=== PATIENT | male | born 1945 | race Caucasian/White ===

== ENCOUNTER → 2024-11-19 10:08 | Outpatient (BNVA) | payer MEDICARE, OTHER, SELFPAY | PROVIDERS: Family Provider Family Medicine; PCP Family Medicine; Visit Provider Podiatrist Foot & Ankle Surgery | DX: R09.89 Other specified symptoms and signs involving the circulatory and respiratory systems (principal); I73.9 Peripheral vascular disease, unspecified | CPT/HCPCS: 99203 ==

== ENCOUNTER 2025-01-01 09:44 | Outpatient (CLI) | payer MEDICARE, SELFPAY ==
--- NOTE | 2025-01-01 11:05 | USR_ITS ---
PROCEDURE INFORMATION: Exam: US Non-Invasive Physiologic Bilateral Lower Extremities Arteries, Complete Exam date and time: 01/01/2025 12:04 PM Age: 79 years old Clinical indication: Pain; Leg, lower; Bilateral; Additional info: Decrease pedal pulses, inocencia le TECHNIQUE: Imaging protocol: Complete bilateral noninvasive physiologic studies of lower extremity arteries, 3 or more levels or single level study with provocative functional maneuvers. Waveforms were obtained and evaluated. Images were documented and archived. Exam is complete. COMPARISON: No relevant prior studies available. FINDINGS: Right Ankle-Brachial Index: 0.72. Left Ankle-Brachial Index: 0.91. US/CV segpressure LE [facility] [id number] IMPRESSION: Evidence of peripheral artery disease, right greater than left.
== END 2025-01-01 09:45 | disposition home or self-care (01) ==
PROVIDERS: Family Provider Family Medicine; PCP Family Medicine; Visit Provider Podiatrist Foot & Ankle Surgery
DX: R09.89 Other specified symptoms and signs involving the circulatory and respiratory systems (principal); R93.89 Abnormal findings on diagnostic imaging of other specified body structures
CPT/HCPCS: 93923

== ENCOUNTER → 2025-01-03 15:08 | Outpatient (BNVA) | payer MEDICARE, OTHER, SELFPAY | PROVIDERS: Family Provider Family Medicine; PCP Family Medicine; Visit Provider Podiatrist Foot & Ankle Surgery | DX: I73.9 Peripheral vascular disease, unspecified (principal); L97.518 Non-pressure chronic ulcer of other part of right foot with other specified severity | CPT/HCPCS: 99213 ==

== ENCOUNTER → 2025-03-07 14:44 | Outpatient (BNVA) | payer MEDICARE, OTHER, SELFPAY | PROVIDERS: Family Provider Family Medicine; PCP Family Medicine; Visit Provider Podiatrist Foot & Ankle Surgery | DX: I73.9 Peripheral vascular disease, unspecified (principal); L97.513 Non-pressure chronic ulcer of other part of right foot with necrosis of muscle | CPT/HCPCS: 87070; 87075; 87077; 87186; 87205; 99214 ==

== ENCOUNTER → 2025-03-28 12:24 | Outpatient (BNVA) | payer MEDICARE, OTHER, SELFPAY | PROVIDERS: Family Provider Family Medicine; PCP Family Medicine; Visit Provider Internal Medicine Cardiovascular Disease | DX: R07.9 Chest pain, unspecified (principal); I73.9 Peripheral vascular disease, unspecified; R00.1 Bradycardia, unspecified; I51.7 Cardiomegaly; L97.513 Non-pressure chronic ulcer of other part of right foot with necrosis of muscle; R94.31 Abnormal electrocardiogram [ECG] [EKG] | CPT/HCPCS: 36415; 80048; 85025; 85610; 93005; 99213 ==

== ENCOUNTER 2025-04-11 08:26 | Outpatient (CLI) | payer MEDICARE, OTHER, SELFPAY ==
[2025-04-11] VITALS (50 sets, daily range): BP systolic 96–191; BP diastolic 54–105; PULSE 60–86; RESP 12–28; TEMP 36.4; O2SAT 89–100; BMI 16.2
--- NOTE | 2025-04-11 09:00 | XACV_ITS ---
Exam Room: 2 Ht: 183 cm Wt: 54 kg BSA: 1.64 m2 Gender: Male : 1945 Any Known Allergies: Sulfa Exam Priority: Routine Procedure(s): Procedure Description: Diagnostic procedure Procedure Description: Peripheral Cath Diagnostic Procedure Procedure Description: Abdominal aortic angiography Procedure Description: Iliac arterial aortic angiography Procedure Description: Lower extremities' angiography Procedure Description: Peripheral vascular Intervention Procedure Description: PV Balloon Procedure Description: PV Stent Procedure Description: Miscellaneous Procedure Description: ACT Kirsty LO; Diagnostic Cath Status: Elective Diagnostic Findings * ndication for peripheral angiogram: Critical limb ischemia with pain at rest of right more than left lower extremity Catheters used:: 6 Martiniquais short sheath, 6 Martiniquais long destination sheath, UF catheter, GlidewireAbdominal aortogram: After UF catheter was advanced into mid abdominal segment at the level of renal arteries, angiogram was obtained, it was consistent with moderate infrarenal aneurysmRight renal artery: Not well-visualized Left renal artery: Not well-visualizedYou have catheter was then advanced and placed at the bifurcation of the both common iliac from where right lower extremity runoff was obtainedRight common iliac: Proximal calcified mild to moderate lesion Right external iliac: Proximal calcified mild to moderate lesion Right internal iliac: High-grade ostial stenosis followed by ectasia Right common femoral artery: Diffuse luminal irregularity with calcification Right profundofemoral artery: Small caliber diffuse luminal irregularity with calcification Long sheath was exchanged over Glidewire and placed in the right common femoral to obtain angiogramRight SFA: Extremely calcified and highly tortuous vessel which is 100% chronically occluded in the proximal segmentRight popliteal artery: Very calcified vessel with moderate lesion in the midsegment reconstitute in its proximal segment from profunda femoral and collaterals coming from common femoral arteryRight Tibioperoneal trunk calcified small caliber artery which is patent Right anterior tibial artery: Calcified torturous vessel which is patent has blood coming in trickling down from collaterals Right posterior tibial artery: Chronically occluded Right peroneal artery: Chronically occludedLeft common iliac artery: Ectatic calcified aneurysmal torturous artery without significant stenosis Left external iliac artery: Calcified vessel which is patent Left internal iliac artery: Appeared to be chronically occluded not visualized Left common femoral artery: Calcified vessel with moderate proximal stenosis Left profundofemoral artery: Calcified vessel which is patent but small caliber Left SFA artery: Appeared to be highly calcified torturous and chronically occluded vessel Left popliteal artery: Chronically occluded Left tibioperoneal artery: Chronically occluded Left anterior tibial artery: Not visualized Left posterior tibial artery: Not visualized Left peroneal artery: Not visualized. Lower Extremity Interventional Findings Percutaneous angioplasty using lithotripsy of right SFA and popliteal arteryAfter somewhat difficulty using seeker catheter Glidewire and run-through we were able to cross the SFA popliteal artery and parked the run-through in the right anterior tibial artery.We first dilated popliteal artery and right SFA throughout its length using [place] 5.0 x 250 x 1 and 35 balloon with multiple inflation each lasting for 2 minutesAfter taking the balloon out of the patient, we then introduced IV L catheter 6.0 x 80 mm shockwave multiple shockwave were delivered first in the right popliteal artery which was then withdrawn back into the right SFA. Multiple shockwaves were delivered in proximal to distal right SFA. Supera stent deployment in the distal to mid right SFA since that segment despite of balloon angioplasty and shockwave showed moderate to severe lesion. Using 6.0 x 0.15 mm supera stent we then stented distal SFA segment.Excellent angiographic result was obtained which showed widely patent right SFA popliteal right tibioperoneal trunk and single-vessel runoff of torturous calcified right anterior tibial. Right anterior tibial was supplying collaterals and contributed to the arch. Conclusions ndication for peripheral angiogram: Critical limb ischemia with pain at rest of right more than left lower extremity Catheters used:: 6 Martiniquais short sheath, 6 Martiniquais long destination sheath, UF catheter, GlidewireAbdominal aortogram: After UF catheter was advanced into mid abdominal segment at the level of renal arteries, angiogram was obtained, it was consistent with moderate infrarenal aneurysmRight renal artery: Not well-visualized Left renal artery: Not well-visualizedYou have catheter was then advanced and placed at the bifurcation of the both common iliac from where right lower extremity runoff was obtainedRight common iliac: Proximal calcified mild to moderate lesion Right external iliac: Proximal calcified mild to moderate lesion Right internal iliac: High-grade ostial stenosis followed by ectasia Right common femoral artery: Diffuse luminal irregularity with calcification Right profundofemoral artery: Small caliber diffuse luminal irregularity with calcification Long sheath was exchanged over Glidewire and placed in the right common femoral to obtain angiogramRight SFA: Extremely calcified and highly tortuous vessel which is 100% chronically occluded in the proximal segmentRight popliteal artery: Very calcified vessel with moderate lesion in the midsegment reconstitute in its proximal segment from profunda femoral and collaterals coming from common femoral arteryRight Tibioperoneal trunk calcified small caliber artery which is patent Right anterior tibial artery: Calcified torturous vessel which is patent has blood coming in trickling down from collaterals Right posterior tibial artery: Chronically occluded Right peroneal artery: Chronically occludedLeft common iliac artery: Ectatic calcified aneurysmal torturous artery without significant stenosis Left external iliac artery: Calcified vessel which is patent Left internal iliac artery: Appeared to be chronically occluded not visualized Left common femoral artery: Calcified vessel with moderate proximal stenosis Left profundofemoral artery: Calcified vessel which is patent but small caliber Left SFA artery: Appeared to be highly calcified torturous and chronically occluded vessel Left popliteal artery: Chronically occluded Left tibioperoneal artery: Chronically occluded Left anterior tibial artery: Not visualized Left posterior tibial artery: Not visualized Left peroneal artery: Not visualized. Percutaneous angioplasty using lithotripsy of right SFA and popliteal arteryAfter somewhat difficulty using seeker catheter Glidewire and run-through we were able to cross the SFA popliteal artery and parked the run-through in the right anterior tibial artery.We first dilated popliteal artery and right SFA throughout its length using [place] 5.0 x 250 x 1 and 35 balloon with multiple inflation each lasting for 2 minutesAfter taking the balloon out of the patient, we then introduced IV L catheter 6.0 x 80 mm shockwave multiple shockwave were delivered first in the right popliteal artery which was then withdrawn back into the right SFA. Multiple shockwaves were delivered in proximal to distal right SFA. Supera stent deployment in the distal to mid right SFA since that segment despite of balloon angioplasty and shockwave showed moderate to severe lesion. Using 6.0 x 0.15 mm supera stent we then stented distal SFA segment.Excellent angiographic result was obtained which showed widely patent right SFA popliteal right tibioperoneal trunk and single-vessel runoff of torturous calcified right anterior tibial. Right anterior tibial was supplying collaterals and contributed to the arch. Recommendations 1-Return to inpatient for close monitoring and routine cath care 2-Risk factor modification for secondary prevention 3-Statin and aspirin 81 mg life-long, if tolerated 4-Patient was pre-loaded with 300 mg of Plavix, continue Plavix 75mg p.o. daily. 5-CTA of the abdominal aorta to assess renal arteries and exact size of the abdominal aortic aneurysm followed by referral to vascular surgery 6-Follow up with Dr. Lofton in four weeks and your primary care in 10 days. Pressures Phase:Rest AO : 190 / 62 ( 108 ) @ 11:04:00 AM 154 / 63 ( 102 ) @ 11:08:00 AM 122 / 66 ( 93 ) @ 11:51:00 AM 132 / 57 ( 88 ) @ 11:59:00 AM Hemodynamic Data Phase:Rest AO : 190.0 / 62.0 ( 108.0 ) @ 11:04:00 AM 154.0 / 63.0 ( 102.0 ) @ 11:08:00 AM 122.0 / 66.0 ( 93.0 ) @ 11:51:00 AM 132.0 / 57.0 ( 88.0 ) @ 11:59:00 AM Clinical Evaluation EBL: 5mL-10mL Procedural Details Pre-Procedure Time Out. Identified patient by full name and date of as verbalized by the patient/guarantor. Does the consent match the physician's order: Yes. Accurate & Complete Informed Consent: Yes. Inpatient/Outpatient History & Physical on Chart: Yes. If H&P is completed, is and addenduem needed: No; If yes, is the addendum complete: N/A. Visualize and Verify Site with Patient/Guarantor: N/A. Relevant Radiology Images available: Yes. Pre-op teaching completed and patient verbalized understanding. The risks, benefits, and alternatives of sedation and/or procedure were discussed by physician. The patient agrees to continue. Procedure started. Physician arrived. Physician scrubbed in. Immediate Pre-Procedure Time Out. Correct Patient: Yes; Correct Procedure: Yes; Correct Site: Yes; Correct Patient Position: Yes; Correct Supplies: Yes; Dried Flammable Prep: Yes; Blood Products Available: N/A;. Lidocaine 1% infiltrated to the left groin. Arterial access obtained with micropuncture set. A 5FrFr UF catheter in over wire. Abdominal aortogram with runoff performed in AP @ 10 mL/sec for a total of 30 mL. UF catheter postioned above the bifurcation of the iliacs. Aortagram performed @ 10 mL/sec for a total of 30 mL. Left external iliac selected and arteriogram with runoff performed @ 10 mL/sec for a total of 30 mL. Physician review of cine films. DSA performed of both iliacs. Glidewire inserted through the catheter. Catheter removed over the glide wire. A 5FrFr RIM catheter in over wire. Catheter out over the glidewire. The short 6Fr sheath exchanged for a 45cm 6Fr Flexor sheath. Right external iliac selected and arteriogram performed. Seeker inserted OTW. Wire out. Glidewire Advantage inserted. Wire out. Catheter hooked to heparnized saline at KVO. Glidewire Advantage inserted. Wire out. Contrast hand injected through the catheter. Glidewire Advantage inserted. Seeker catheter out OTW. ACT drawn. Results 287 seconds. Therapeutic limits - pre-heparin administration 90-150 seconds and monitoring heparin during a vascular procedure >250 seconds. Inflation number : 1 A AB [place] 35 PROFESSOR OF HISTORY Catheter [id number] was prepped and advanced across the Superficial Femoral, Right , then inflated to 8 LIZA for 2:00 seconds. Inflation number: 2 The AB [place] 35 [employer]ESSOR OF HISTORY Catheter [id number] was reinflated across the Superficial Femoral, Right, to 8 LIZA for 2:04 seconds. Balloon out. Results checked. Seeker inserted OTW. Wire removed. 300cm Runthrough wire inserted. Physician review of cine films. ACT drawn. Results 221 seconds. Therapeutic limits - pre-heparin administration 90-150 seconds and monitoring heparin during a vascular procedure >250 seconds. 6.0x80mm Shockwave IVL balloon inserted OTW and advanced to the SFA. Inflation number : 3 A 6.0x80mm Shockwave was prepped and advanced across the Superficial Femoral, Right , then inflated to 4 LIZA for 0:43 seconds. Inflation number: 4 The 6.0x80mm Shockwave was reinflated across the Superficial Femoral, Right, to 4 LIZA for 0:37 seconds. Inflation number: 5 The 6.0x80mm Shockwave was reinflated across the Superficial Femoral, Right, to 4 LIZA for 0:36 seconds. Inflation number: 6 The 6.0x80mm Shockwave was reinflated across the Superficial Femoral, Right, to 4 LIZA for 0:41 seconds. Inflation number: 7 The 6.0x80mm Shockwave was reinflated across the Superficial Femoral, Right, to 4 LIZA for 0:32 seconds. Inflation number: 8 The 6.0x80mm Shockwave was reinflated across the Superficial Femoral, Right, to 4 LIZA for 0:34 seconds. Inflation number: 9 The 6.0x80mm Shockwave was reinflated across the Superficial Femoral, Right, to 4 LIZA for 0:32 seconds. Inflation number: 10 The 6.0x80mm Shockwave was reinflated across the Superficial Femoral, Right, to 4 LIZA for 0:35 seconds. Inflation number: 11 The 6.0x80mm Shockwave was reinflated across the Superficial Femoral, Right, to 4 LIZA for 0:35 seconds. Inflation number: 12 The 6.0x80mm Shockwave was reinflated across the Superficial Femoral, Right, to 4 LIZA for 0:33 seconds. Balloon out. Results checked. Stent inserted over the wire to the right superficial femoral. Inflation Number : 13 A Supera 6.0 X 150mm Stent -Lot Number# _[id number] EXP: 02/18/2027 was prepped and advanced across the Superficial Femoral, Right. The stent was deployed. Stent balloon out over wire. Results checked. Wire out. The standard wire inserted through the sheath. Sheath exchanged for a short 6FR sheath. Sheath injected in Left common femoral artery and runoff performed. ACT drawn. Results 301 seconds. Therapeutic limits - pre-heparin administration 90-150 seconds and monitoring heparin during a vascular procedure >250 seconds. Physician scrubbed out. A Suture was successful obtaining hemostatsis at the Left Femoral artery insertion site. Sheath(s) sutured into position with 2-0 silk and sterile 4x4's and Op-site applied over the site. No oozing or signs and symptoms of hematoma noted. Arterial sheath flushed and connected to tranducer and pressure bag with heparinized saline. Post Procedure: Pulses reassessed and unchanged. PERRLA. Strong, equal hand instructional technology coach bilaterally. No VTE prophylaxis required. Medication's Wasted: Lidocaine 1% = 10 mL. Medication's Wasted: Heparin = 1000 units. Medication's Wasted: Other = Hydralazine 10 mg. Vital chart was stopped. Medication's Wasted: Nitro = 49.6 mcg. Total IV fluids: 180 mL. Post-op diagnosis: PAD. Complications: None. Estimated blood loss: 5mL-10mL. Responsiveness - Normal response to verbal stimuli; alert and oriented, PERRLA. Airway - Unaffected, no intervention required; spontaneous ventilation. Circulation: W/N/L, pulses unchanged. Nausea/Vomiting: No. Procedure completed. Patient transferred by bed to ICU. Access Site Site: Left Femoral artery Sheath Size: 6 Fr Hemostasis Method: Suture Hemostasis Success: Successful Procedure Medications Start: 9:47 AM Stop: 9:47 AM Medication: Versed 1 mg and Fentanyl 25 mcg Amount: 1 Route: I.V. Start: 10:04 AM Stop: 10:04 AM Medication: Hydralazine Amount: 10 mg Route: I.V. Start: 10:28 AM Stop: 10:28 AM Medication: Versed Amount: 1 mg Route: I.V. Start: 10:45 AM Stop: 10:45 AM Medication: Heparin Amount: 5000 units Route: I.V. Start: 10:48 AM Stop: 10:48 AM Medication: Fentanyl Amount: 25 mcg Route: I.V. Start: 11:05 AM Stop: 11:05 AM Medication: Fentanyl Amount: 25 mcg Route: I.V. Start: 11:07 AM Stop: 11:07 AM Medication: Versed Amount: 1 mg Route: I.V. Start: 11:30 AM Stop: 11:30 AM Medication: Heparin Amount: 3000 units Route: I.V. Start: 11:39 AM Stop: 11:39 AM Medication: Fentanyl Amount: 25 mcg Route: I.V. Start: 11:46 AM Stop: 11:46 AM Medication: Nitrogylcerin Amount: 400 mcg Route: I.A. Start: 12:18 PM Stop: 12:18 PM Medication: Plavix Amount: 300 mg Route: P.O. I, the attending physician, have reviewed and verified all procedure medications. Yes, all medications given per verbal order History/Risk Factors Hypertension: No Dyslipidemia: No Peripheral Arterial Disease (PAD): Yes Myocardial Infarction ([place]): No Obesity: No Renal Disease: No Tobacco Use: Current/Recent(w/in 1 year) Prior Interventions PCI: No CABG: No Valve Surgery: No Report Signatures Finalized by Alex Lofton MD on 04/28/2025 11:32 PM
--- NOTE | 2025-04-11 09:14 | W.PM.OPSUD ---
Surgery/Procedure H&P Update DATE OF PROCEDURE: April 11, 2025 DATE H&P PERFORMED: 03/28/25 PREOP DIAGNOSIS: Critical limb ischemia, nonhealing ulcer of the foot PRIMARY INDICATION FOR PROCEDURE: Critical limb ischemia, nonhealing ulcer of the right foot with moderate to severely depressed ERYN PLANNED PROCEDURE: Operation Date: 04/11/25 10:00 Proposed Procedures p Peripheral Diagnostic - Periph Angio Bilat(Bilateral) - Alex Lofton MD PATIENT REASSESSED PRIOR TO SEDATION, WITH NO CHANGE NOTED: Yes PHYSICAL EXAM: alert, oriented x 3, clear to auscultation bilaterally, regular rate & rhythm and operative site marked AIRWAY EVAL/ANESTHESIA PLAN: ASA II, Risks, benefits & alternatives of sedation and/or procedure discussed and Patient agrees to continue as planned ADDITIONAL INFORMATION: Patient has been explained all risk-benefit and alternative for the procedure. Patient understand 2% risk of stroke major bleed, patient understand 4 to 5% risk of acute limb ischemia amputation urgent or emergent vascular surgery MD congestive heart failure worsening of renal function leading to contrast induced nephropathy. Patient understand 5 to 6% risk of pseudoaneurysm vascular injury bruising hematoma. Patient would like to proceed with it.
[2025-04-11] MEDS: diphenhydrAMINE 50 mg Capsule PO (09:20)
--- NOTE | 2025-04-11 12:18 | PM.PROC ---
Procedure Note: Date of procedure: 04/11/25 Pre-procedure diagnosis: Critical limb ischemia with foot ulcer Post-procedure diagnosis: same Procedure: Peripheral angiogram was performed. Abdominal aortography: Moderate to large abdominal aneurysm Highly calcified torturous common and external iliac arteries without significant stenosis Highly calcified chronically occluded torturous right SFA popliteal artery Chronically occluded highly calcified posterior tibial Calcified torturous but not significant stenotic right tibioperoneal trunk Anterior tibial vessel has single-vessel runoff all the way to the foot Peroneal vessel is atretic small caliber with mild to moderate stenosis Left: Chronically occluded left SFA popliteal, no flow below the knee was noted most likely due timing out of contrast Left common iliac has luminal irregularity with highly calcified nature Percutaneous angioplasty, intravascular lithotripsy and stent placement of distal SFA and popliteal right side artery with excellent angiographic result. Single-vessel runoff was noted all the way to the right foot which feeds arch Plan: Check PTT when less than 45 pull out the left common femoral sheath Bedrest for 5 hours Patient has been loaded with 10 mg of Plavix No aspirin because of prior perforated ulcers history Will add tomorrow at the time of discharge 2.5 mg of Xarelto along with 75 mg of Plavix and pantoprazole Start home medication including amlodipine and metoprolol succinate 50 mg once a day IV hydralazine 10 mg Q4 for systolic blood pressure more than 160 Full note to be dictated Coding Level of Care Code Acute Code for Jamila Dawson
--- NOTE | 2025-04-11 12:40 | PC.NURSE ---
Pt arrvies to ICU as [facility] patient from [facility]. Sheath in left groin intact, no bleeding or hematomas noted. Dorsal Pedis pulses not able to doppler, as reported by [facility] staff. Tibial pulses present but diminished. Sinus rhythm noted on monitor. Pt has refused luch and dinner stating hospital food is horrible then he goes on to say he mostly drinks protein shakes. Protein shakes ordered for him with each meal. He has attempted to use urinal once this afternoon, no urination noted yet. Sheath removed at 1650, pt tolerating well. NO bleeding or hematomas noted.
--- NOTE | 2025-04-11 13:47 | PC.NURSE ---
SDOH: PT refused to answer . He stated Stick it up their asses.
--- NOTE | 2025-04-11 13:52 | PC.NURSE ---
Difficult to obtain O2 sat reading PT's finger tips are dusky and cool.
[2025-04-11] MEDS: pantoprazole DR 40 mg Tablet PO (14:00)
[2025-04-11] MEDS: amlodipine 5 mg Tablet PO (14:00)
[2025-04-11] MEDS: sodium chloride 0.9% 1,000 ML 50 ML IV (14:02)
[2025-04-11 16:12] LABS: Partial Thromboplastin Time 42.8 SECONDS (23.9-36.7)
[2025-04-11] MEDS: fentaNYL 50 mcg/mL INJ 2mL IVP (16:21)
--- NOTE | 2025-04-11 16:55 | PC.NURSE ---
Pt pre medicated with Fentanyl. Left groin sheath removed intact. PRessure held until hemostatis obtained. Gauze and biocclusive dressing applied. Pt tolerated very well. No changes in pulses.
[2025-04-11] MEDS: alum-mag-hydroxide-sime 30 mL UDC PO (17:29)
[2025-04-11] MEDS: atorvastatin 40 mg Tablet 80 MG PO (21:30)
[2025-04-11] MEDS: ALPRAZolam 0.5 mg Tablet 0.25 MG PO (21:30)
[2025-04-11] MEDS: sodium chloride 0.9% 1,000 ML 100 ML IV (21:31)
[2025-04-12] VITALS (29 sets, daily range): BP systolic 121–180; BP diastolic 55–108; PULSE 58–81; RESP 14–25; TEMP 35.9–36.6; O2SAT 91–100
[2025-04-12] MEDS: alum-mag-hydroxide-sime 30 mL UDC PO (00:26)
--- NOTE | 2025-04-12 03:26 | PC.NURSE ---
Bladder scan showed 618 mls of urine in bladder. Pt had c/o having to urinate but could not go. The candy mixer carbon accountant was contacted and informed of the situation. Dr. Sanchez gave an order for a straight cath. Straight cath was placed 900 mls of urine out.
[2025-04-12 05:36] LABS: Basophils # 0.1 10^3/uL (0.0-0.1); Basophils % 0.5 %; Eosinophils # 0.2 10^3/uL (0.0-0.8); Hematocrit 36.2 % (37-53); Lymphocytes # 0.6 10^3/uL (0.8-4.8); Lymphocytes % 6.4 %; Mean Corpuscular HGB Conc 32.6 g/dL (30-55); Mean Corpuscular Hemoglobin 30.6 pg (27-33); Mean Corpuscular Volume 93.8 fl (82-101); Mean Platelet Volume 8.5 fL (7.4-10.4); Monocytes # 0.7 10^3/uL (0.2-0.9); Monocytes % 7.7 %; Neutrophils # 7.87 10^3/uL (1.8-7.7); Neutrophils % 83.1 %; Nucleated Red Blood Cells % 0 %; Platelet Count 313 10^3/cmm (157-399); Red Blood Count 3.86 10^6/uL (3.85-5.65); Red Cell Distribution Width 13.1 % (12.1-15.1); White Blood Count 9.48 10^3/uL (3.29-11.43)
[2025-04-12 06:01] LABS: Anion Gap 12.3 (5-19); Blood Urea Nitrogen 33 mg/dL (8-23); Calcium 9.9 mg/dL (8.5-10.5); Carbon Dioxide 28 mmol/L (22-29); Chloride 100 mmol/L (98-107); Glucose 79 mg/dL (65-115); Osmolality Calculated 288 mOsm/kg (285-295); Potassium 4.3 mmol/L (3.5-5.1); Sodium 136 mmol/L (136-145)
[2025-04-12] MEDS: metoprolol succinate ER (24 HR) 50 mg Tablet PO (09:31)
[2025-04-12] MEDS: pantoprazole DR 40 mg Tablet PO (09:31)
[2025-04-12] MEDS: amlodipine 5 mg Tablet PO (09:31)
[2025-04-12] MEDS: clopidogrel 75 mg Tablet PO (09:31)
--- NOTE | 2025-04-12 10:16 | P.DS_ITS ---
<Statement entered by Alex Lofton MD - 04/12/25 18:31> Patient was evaluated and cared for in conjunction with an advanced practice practitioner. I personally examined the patient and reviewed the chart and all pertinent data including imaging, telemetry, and laboratory results. I discussed the patient in detail with the advanced practice practitioner. Please see their note for complete H&P testing result and agreed upon plan of care for the patient. Discharge Providers Date of Admission: 04/11/25 Date of Discharge: April 12, 2025 Attending Provider at Admission: Alex Lofton MD Attending Provider at Discharge: Alex Lofton MD Primary Care Provider: Reggie Ruvalcaba Reason for Visit Reason for Visit: I70.233 Brief History: The patient is a 79-year-old male presenting with lifestyle-limiting claudication pain. The symptoms have been ongoing, with abnormal ERYN readings indicating peripheral arterial disease, primarily on the right side with an ERYN of 0.72. The patient experiences pain exacerbated by walking, impacting his mobility significantly. During this evaluation, the patient reported foot ulcers on the right foot, which have been present for a month or two, alongside prior swelling. These ulcers have not been painful but are presumed linked to the blood flow issues diagnosed via ultrasound imaging, which showed blockages. The patient has a history of significant tobacco use, contributing to his vascular issues. Moreover, he notes no experiences of chest pain. 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 He underwent angioplasty, intravascular lithotripsy and stent placement of the distal right SFA and popliteal artery with single-vessel runoff to the right foot. He was started on Xarelto 2.5 mg daily, Plavix, Protonix. No complications with left femoral cath site. Creatinine is normal this morning. Will discharge home today, plan for staged peripheral intervention for the left leg in 2 to 3 weeks. Follow-up with cardiology clinic in 7 to 10 days. He will require referral for the abdominal aortic aneurysm. His heart rate has been in the 60s, sinus rhythm on metoprolol succinate 50 mg daily. His home dose was 100 mg twice a day, will reduce to 50 mg twice a day at discharge and can reevaluate at his follow-up visit. Continue amlodipine 10 mg daily for blood pressure control. Physical Exam Const: COMMON NORMALS: no acute distress and patient oriented x3 GENERAL APPEARANCE: cooperative ORIENTATION/CONSCIOUSNESS: Yes awake, Yes oriented to person, Yes oriented to place and Yes oriented to time Chest: COMMONS NORMALS: normal inspection of the chest and normal palpation of entire chest wall CHEST: Yes Symmetrical chest wall rise Resp: COMMON NORMALS: normal respiratory effort, No retractions, No use of accessory muscles and clear to auscultation bilaterally AUSCULTATION: clear to auscultation bilaterally Cardio: COMMON NORMALS: regular rate, regular rhythm, S1 normal heart sound present, S2 normal heart sound present, No gallops present (Cardio), No clicks present (Cardio), No murmurs present (Cardio) and No rub (Cardio) RATE: regular rate RHYTHM: regular rhythm HEART SOUNDS: S1 normal heart sound present and S2 normal heart sound present PERIPHERAL PULSES: radial pulses present positive right 2+ and femoral pulses present positive right 2+ Neuro: COMMON NORMALS: patient oriented x3 and moves all extremities SENSORIUM/ORIENTATION: Yes oriented to person, Yes oriented to place and Yes oriented to time Skin: WOUNDS: Yes surgical site (no hematoma palpable) Details: no odor Discharge Data Studies Completed and Pending Pending at discharge Category Date Time Status PRODUCT GRADER request for service Routine Exams 04/11/25 09:00 Ordered Laboratory Results WBC 9.48 10^3/uL (3.29-11.43) 04/12/25 05:20 RBC 3.86 10^6/uL (3.85-5.65) 04/12/25 05:20 Hgb 11.80 g/dL (11.27-16.99) 04/12/25 05:20 Hct 36.2 % (37-53) L 04/12/25 05:20 MCV 93.8 fl (82-101) 04/12/25 05:20 MCH 30.6 pg (27-33) 04/12/25 05:20 MCHC 32.6 g/dL (30-55) 04/12/25 05:20 RDW 13.1 % (12.1-15.1) 04/12/25 05:20 Plt Count 313 10^3/cmm (157-399) 04/12/25 05:20 MPV 8.5 fL (7.4-10.4) 04/12/25 05:20 Neut % (Auto) 83.1 % 04/12/25 05:20 Lymph % (Auto) 6.4 % 04/12/25 05:20 Schleicher % (Auto) 7.7 % 04/12/25 05:20 Eos % (Auto) 2.0 % 04/12/25 05:20 Baso % (Auto) 0.5 % 04/12/25 05:20 Neut # (Auto) 7.87 10^3/uL (1.8-7.7) H 04/12/25 05:20 Lymph # (Auto) 0.6 10^3/uL (0.8-4.8) L 04/12/25 05:20 Schleicher # (Auto) 0.7 10^3/uL (0.2-0.9) 04/12/25 05:20 Eos # (Auto) 0.2 10^3/uL (0.0-0.8) 04/12/25 05:20 Baso # (Auto) 0.1 10^3/uL (0.0-0.1) 04/12/25 05:20 Nucleated RBC % (auto) 0 % 04/12/25 05:20 Nucleated RBCs # 0.0 /100WBC 04/12/25 05:20 APTT 42.8 SECONDS (23.9-36.7) H 04/11/25 15:11 Sodium 136 mmol/L (136-145) 04/12/25 05:20 Potassium 4.3 mmol/L (3.5-5.1) 04/12/25 05:20 Chloride 100 mmol/L (98-107) 04/12/25 05:20 Carbon Dioxide 28 mmol/L (22-29) 04/12/25 05:20 Anion Gap 12.3 (5-19) 04/12/25 05:20 BUN 33 mg/dL (8-23) H 04/12/25 05:20 Creatinine 0.9 mg/dL (0.7-1.2) 04/12/25 05:20 GFR Calculation Not Reportable 04/12/25 05:20 Glucose 79 mg/dL (65-115) 04/12/25 05:20 Calculated Osmolality 288 mOsm/kg (285-295) 04/12/25 05:20 Calcium 9.9 mg/dL (8.5-10.5) 04/12/25 05:20 Vitals Last Vital Signs Temp 98 F 04/12/25 04:15 Pulse 61 04/12/25 06:00 Resp 14 04/12/25 06:00 BP 143/62 04/12/25 06:00 Pulse Ox 97 04/12/25 05:15 O2 Del Method Room Air 04/11/25 19:30 Discharge Plan Discharge Patient Disposition: Home Prescriptions: New atorvastatin 40 mg Tablet 80 mg PO BEDTIME Qty: 90 2RF pantoprazole 40 mg Tablet,Delayed Release (Dr/Ec) 40 mg PO DAILY Qty: 30 0RF Continued acetaminophen-codeine 300-30 mg tablet 1 tab PO TID PRN (Reason: Pain) linezolid 600 mg tablet 600 mg PO DAILY clopidogrel 75 mg tablet 75 mg PO DAILY amlodipine 10 mg tablet 10 mg PO DAILY levothyroxine 150 mcg tablet 150 mcg PO DIRECTED doxycycline hyclate 100 mg tablet 100 mg PO DIRECTED Changed metoprolol succinate 100 mg tablet extended release 24 hr 50 mg PO BID Qty: 90 0RF Discharge Orders: Discharge Order (Routine); Ordered 04/12/25 Ordered By: Akanksha Martinez Referrals: Akanksha Martinez FNP [Nurse Practitioner, Cardiology] - 7-10 days Reggie Ruvalcaba MD [Primary Care Provider, Family Practice] - 1 week Diet: Advance as tolerated Activity: Increase activity as tolerated Patient Instructions: Atorvastatin (By mouth) (Lipitor, Atorvaliq), Peripheral Vascular Stent Placement (DC), Peripheral Vascular Angioplasty (DC), Post Angiogram Home Care Instructions Activity Restrictions/Additional Instructions: No lifting over 5 pounds for the next 4 days. Print Language: Bhutanese Discharge Attestations Time Spent in Discharge Care*: less than 30 min Quality Metrics Clinical Quality Measures [ No reported AMI, CVA or VTE this stay] Coding Level of Care Code Acute Code for Chg Fwd
== END 2025-04-12 10:55 | disposition home or self-care (01) ==
LOC: CCL 08:28 → ICU 12:46
PROVIDERS: PCP Family Medicine; Visit Provider Internal Medicine Cardiovascular Disease
DX: I70.223 Atherosclerosis of native arteries of extremities with rest pain, bilateral legs (principal); I70.92 Chronic total occlusion of artery of the extremities; F17.200 Nicotine dependence, unspecified, uncomplicated
CPT/HCPCS: 36415; 51702; 75625; 75716; 80048; 85025; 85347; 85730; 96374; 96375; 99152; 99153; C1725; C1769; C1876; C1887; C1894; C9765; J0360; J1644; J2250; J3010; J3490; J7030; J9999; Q0163; Q9967

== ENCOUNTER 2025-04-17 13:30 | Oncology outpatient (recurring) (ONCR) | payer MEDICARE, OTHER, SELFPAY ==
[2025-04-02 09:55] LABS: Basophils % 0.3 %; Eosinophils # 0.2 10^3/uL (0.0-0.8); Eosinophils % 1.8 %; Hematocrit 36.6 % (37-53); Lymphocytes # 0.8 10^3/uL (0.8-4.8); Lymphocytes % 7.9 %; Mean Corpuscular HGB Conc 33.1 g/dL (30-55); Mean Corpuscular Hemoglobin 31.5 pg (27-33); Mean Corpuscular Volume 95.3 fl (82-101); Mean Platelet Volume 8.6 fL (7.4-10.4); Monocytes # 0.6 10^3/uL (0.2-0.9); Neutrophils # 8.12 10^3/uL (1.8-7.7); Neutrophils % 83.6 %; Nucleated Red Blood Cells % 0 %; Platelet Count 304 10^3/cmm (157-399); Red Blood Count 3.84 10^6/uL (3.85-5.65); Red Cell Distribution Width 13.8 % (12.1-15.1); White Blood Count 9.71 10^3/uL (3.29-11.43)
[2025-04-02 10:49] LABS: Alanine Aminotransferase < 5 U/L (0-41); Albumin Level 4.3 g/dL (3.5-5.2); Alkaline Phosphatase 63 U/L (40-130); Anion Gap 16.3 (5-19); Aspartate Amino Transferase 12 U/L (0-40); Blood Urea Nitrogen 52 mg/dL (8-23); Calcium 10.9 mg/dL (8.5-10.5); Carbon Dioxide 27 mmol/L (22-29); Chloride 99 mmol/L (98-107); Creatinine Clr Calc Pharmacy 57.6126; Ferritin 83 ng/mL (30-400); Globulin 3.4 g/dL (1.3-4.6); Glucose 111 mg/dL (65-115); Iron 39 ug/dL (59-158); Lactate Dehydrogenase 175 U/L (135-225); Osmolality Calculated 301 mOsm/kg (285-295); Percent Saturation 12.5 % (20-50); Potassium 4.3 mmol/L (3.5-5.1); Sodium 138 mmol/L (136-145); Total Bilirubin 0.3 mg/dL (0.15-1.2); Total Iron Binding Capacity 310 mcg/dl; Total Protein 7.7 g/dL (6.6-8.7); Unsaturated Iron Binding 271 ug/dL (112-347); Vitamin B12 657 pg/mL (232-1245)
--- NOTE | 2025-04-17 13:30 | CT_ITS ---
WS: [id number] CT CHEST, ABDOMEN AND PELVIS WITH CONTRAST HISTORY: head and neck cancer TECHNIQUE: Contiguous 5 mm axial imaging performed through the chest, abdomen and pelvis with IV contrast, oral contrast has been provided. Coronal and sagittal reformats chest. Coronal and sagittal reformats through the abdomen and pelvis. All CT scans at [facility] use at least one of these dose optimization techniques: automated exposure control; mA and/or kV adjustment per patient size (includes targeted exams where dose is matched to clinical indication); or iterative reconstruction. CONTRAST: Omnipaque 350; 100 mL IV. DLP: 546.62 mGy.cm COMPARISON: None available. Chest CT: Severe centrilobular emphysema. Mild biapical pleural thickening. Pleural scarring and thickening along the RIGHT fissure with a nodule measuring 9 x 14 mm. RIGHT lower lobe irregular nodules. Additional peripheral LEFT lower lobe subsolid opacifications. Severe atherosclerotic changes within the thoracic aorta. Normal size pulmonary artery. No proximal pulmonary embolism. Mild LEFT heart enlargement. No pericardial or pleural effusions. Subcarinal lymph node 2.2 x 2.1 cm. Smaller hilar and paratracheal lymph nodes. Abdomen CT: Normal liver. No metastatic disease. Contracted gallbladder. Normal spleen. Limited visualization of the pancreas but no abnormality. Negative adrenal glands. Kidneys are small and atrophic. 14 mm RIGHT renal cyst, lower pole. No obstruction. Decreased enhancement of the LEFT kidney. Suspect flow- limiting stenosis of a heavily diseased LEFT renal artery. Abdominal aortic aneurysm 4.7 cm. Circumferential thrombus surrounds the patent aorta. Heavy calcification continues into the iliac arteries bilaterally with components of stenosis. Dense calcification in the SMA and celiac axis. Renal arteries are poorly visualized. Soft tissue anasarca and mesenteric edema. No GI tract obstruction. No ischemic changes. Pelvic CT: Distended urinary bladder. Prostate is slightly enlarged. Soft tissue edema. Thoracolumbar scoliosis. No destructive bone lesions. CT/CT chest abdpel w/*[id number] IMPRESSION: 1. Severe chronic emphysema. 2. Scattered irregular nodules in the RIGHT lower lobe. RIGHT perifissural ple ural thickening along with a nodule measuring 9 x 14 mm. Additional dependent c hanges at the LEFT lung base. Recommend follow-up chest CT in 3 months to docum ent stability. No prior studies for comparison. 3. Abdominal aortic aneurysm 4.7 cm. 4. Very dense heavy calcification continues into the iliac arteries with compo nents of stenosis. 5. Mild renal atrophy with no obstruction. 6. Diffuse soft tissue anasarca. Mesenteric edema. No adenopathy identified wi thin the abdomen or pelvis but lymph nodes may be difficult to visualize with t he amount of edema present. 7. Enlarged subcarinal lymph node. 8. Bilateral renal cortical thinning greater on the LEFT with decreased renal enhancement suggesting flow-limiting stenosis to the left renal artery.
[2025-04-17] MEDS: iohexol 350 mg/mL 500 mL Btl (per mL) IV (13:49)
[2025-04-17] MEDS: iohexol 350 mg/mL 500 mL Btl (per mL) PO (13:49)
== END 2025-04-20 23:59 | disposition home or self-care (01) ==
LOC: ONCMED 15:00 → RAD 04-18 00:01 → ONCMED 04-18 09:02
PROVIDERS: PCP Family Medicine; Visit Provider Internal Medicine
DX: Z53.9 Procedure and treatment not carried out, unspecified reason; C76.0 Malignant neoplasm of head, face and neck; R91.1 Solitary pulmonary nodule; I71.40 Abdominal aortic aneurysm, without rupture, unspecified; I70.90 Unspecified atherosclerosis; N26.1 Atrophy of kidney (terminal); R60.1 Generalized edema
CPT/HCPCS: 71260; 74177; 80053; 82607; 82728; 82746; 83010; 83540; 83550; 83615; 85025; 99204

== ENCOUNTER 2025-05-01 08:54 | Oncology outpatient (recurring) (ONCR) | payer MEDICARE, OTHER, SELFPAY ==
[2025-05-01 09:26] VITALS: BP 144/77; PULSE 65; RESP 17; TEMP 37.5; O2SAT 94
[2025-05-01 09:46] LABS: Basophils # 0.1 10^3/uL (0.0-0.1); Basophils % 0.6 %; Eosinophils # 0.1 10^3/uL (0.0-0.8); Eosinophils % 1.4 %; Hematocrit 31.5 % (37-53); Lymphocytes # 0.8 10^3/uL (0.8-4.8); Lymphocytes % 8.7 %; Mean Corpuscular Hemoglobin 30.8 pg (27-33); Mean Corpuscular Volume 93.2 fl (82-101); Mean Platelet Volume 8.4 fL (7.4-10.4); Monocytes # 0.6 10^3/uL (0.2-0.9); Monocytes % 6.9 %; Neutrophils # 7.66 10^3/uL (1.8-7.7); Neutrophils % 82.2 %; Nucleated Red Blood Cells % 0 %; Platelet Count 365 10^3/cmm (157-399); Red Blood Count 3.38 10^6/uL (3.85-5.65); Red Cell Distribution Width 12.7 % (12.1-15.1); White Blood Count 9.32 10^3/uL (3.29-11.43)
[2025-05-01 10:06] LABS: Alanine Aminotransferase 7 U/L (0-41); Albumin Level 3.9 g/dL (3.5-5.2); Alkaline Phosphatase 73 U/L (40-130); Anion Gap 14.5 (5-19); Aspartate Amino Transferase 13 U/L (0-40); Blood Urea Nitrogen 52 mg/dL (8-23); Calcium 10.1 mg/dL (8.5-10.5); Carbon Dioxide 27 mmol/L (22-29); Chloride 100 mmol/L (98-107); Ferritin 87 ng/mL (30-400); Globulin 3.7 g/dL (1.3-4.6); Glucose 101 mg/dL (65-115); Iron 32 ug/dL (59-158); Lactate Dehydrogenase 150 U/L (135-225); Osmolality Calculated 298 mOsm/kg (285-295); Percent Saturation 11.1 % (20-50); Potassium 4.5 mmol/L (3.5-5.1); Sodium 137 mmol/L (136-145); Total Bilirubin 0.2 mg/dL (0.15-1.2); Total Iron Binding Capacity 288 mcg/dl; Total Protein 7.6 g/dL (6.6-8.7); Unsaturated Iron Binding 256 ug/dL (112-347)
[2025-05-01 10:21] LABS: Vitamin B12 789 pg/mL (232-1245)
[2025-05-01 10:30] LABS: Folate Level 11.6 ng/mL (4.5-32.2)
[2025-05-01] MEDS: pembrolizumab 200 MG in sodium chloride 0.9% 250 ML 516 MG IV (12:04)
== END 2025-05-01 23:59 | disposition home or self-care (01) ==
PROVIDERS: PCP Family Medicine; Visit Provider Internal Medicine
DX: Z53.9 Procedure and treatment not carried out, unspecified reason; Z51.12 Encounter for antineoplastic immunotherapy; C05.1 Malignant neoplasm of soft palate; F17.200 Nicotine dependence, unspecified, uncomplicated; D50.9 Iron deficiency anemia, unspecified; E46 Unspecified protein-calorie malnutrition; Z68.1 Body mass index [BMI] 19.9 or less, adult; Z79.899 Other long term (current) drug therapy; I73.9 Peripheral vascular disease, unspecified
CPT/HCPCS: 80053; 82607; 82728; 82746; 83010; 83540; 83550; 83615; 85025; 96413; 99213; 99214; A4222; J7050; J9271

== ENCOUNTER 2025-06-05 09:19 | Oncology outpatient (recurring) (ONCR) | payer MEDICARE, OTHER, SELFPAY ==
[2025-06-05 09:52] LABS: Hematocrit 37.4 % (37-53); Hemoglobin 12.30 g/dL (11.27-16.99); Mean Corpuscular HGB Conc 32.9 g/dL (30-55); Mean Corpuscular Hemoglobin 30.4 pg (27-33); Mean Corpuscular Volume 92.6 fl (82-101); Nucleated Red Blood Cells % 0 %; Platelet Count 296 10^3/cmm (157-399); Red Blood Count 4.04 10^6/uL (3.85-5.65); White Blood Count 8.24 10^3/uL (3.29-11.43)
[2025-06-05 10:18] LABS: Alanine Aminotransferase 7 U/L (0-41); Albumin Level 4.2 g/dL (3.5-5.2); Alkaline Phosphatase 83 U/L (40-130); Anion Gap 16.4 (5-19); Aspartate Amino Transferase 16 U/L (0-40); Blood Urea Nitrogen 45 mg/dL (8-23); Calcium 10.8 mg/dL (8.5-10.5); Carbon Dioxide 27 mmol/L (22-29); Chloride 96 mmol/L (98-107); Creatinine Clr Calc Pharmacy 49.0412; Ferritin 51 ng/mL (30-400); Globulin 3.7 g/dL (1.3-4.6); Glucose 99 mg/dL (65-115); Iron 57 ug/dL (59-158); Osmolality Calculated 292 mOsm/kg (285-295); Potassium 4.4 mmol/L (3.5-5.1); Sodium 135 mmol/L (136-145); Thyroid Stimulating Hormone 28.43 uIU/mL (0.27-4.20); Total Iron Binding Capacity 324 mcg/dl; Total Protein 7.9 g/dL (6.6-8.7); Unsaturated Iron Binding 267 ug/dL (112-347)
[2025-06-05] MEDS: pembrolizumab 200 MG in sodium chloride 0.9% 250 ML 516 MG IV (11:03)
== END 2025-06-05 23:59 | disposition home or self-care (01) ==
PROVIDERS: Nurse Practitioner; PCP Family Medicine; Visit Provider Internal Medicine
DX: Z51.12 Encounter for antineoplastic immunotherapy (principal); C76.0 Malignant neoplasm of head, face and neck; C05.1 Malignant neoplasm of soft palate; I73.9 Peripheral vascular disease, unspecified; E46 Unspecified protein-calorie malnutrition; R63.4 Abnormal weight loss; E03.9 Hypothyroidism, unspecified; Z79.899 Other long term (current) drug therapy; Z92.3 Personal history of irradiation
CPT/HCPCS: 80053; 82728; 83540; 83550; 84443; 85025; 96413; 99214; A4222; J7050; J9271

== ENCOUNTER 2025-06-26 08:46 | Oncology outpatient (recurring) (ONCR) | payer MEDICARE, OTHER, SELFPAY ==
[2025-06-26 09:41] LABS: Hematocrit 33.7 % (37-53); Hemoglobin 11.20 g/dL (11.27-16.99); Mean Corpuscular HGB Conc 33.2 g/dL (30-55); Mean Corpuscular Hemoglobin 30.9 pg (27-33); Mean Corpuscular Volume 93.1 fl (82-101); Nucleated Red Blood Cells % 0 %; Platelet Count 309 10^3/cmm (157-399); Red Blood Count 3.62 10^6/uL (3.85-5.65); White Blood Count 7.35 10^3/uL (3.29-11.43)
[2025-06-26 10:15] LABS: Alanine Aminotransferase 10 U/L (0-41); Albumin Level 4.2 g/dL (3.5-5.2); Alkaline Phosphatase 74 U/L (40-130); Aspartate Amino Transferase 16 U/L (0-40); Blood Urea Nitrogen 53 mg/dL (8-23); Calcium 9.9 mg/dL (8.5-10.5); Carbon Dioxide 29 mmol/L (22-29); Chloride 102 mmol/L (98-107); Creatinine Clr Calc Pharmacy 51.2112; Globulin 3.5 g/dL (1.3-4.6); Glucose 97 mg/dL (65-115); Osmolality Calculated 308 mOsm/kg (285-295); Sodium 142 mmol/L (136-145); Thyroid Stimulating Hormone 0.87 uIU/mL (0.27-4.20); Total Protein 7.7 g/dL (6.6-8.7)
[2025-06-26 10:31] LABS: Anion Gap 15.4 (5-19); Potassium 4.4 mmol/L (3.5-5.1)
[2025-06-26] MEDS: pembrolizumab 200 MG in sodium chloride 0.9% 250 ML 516 MG IV (11:08)
[2025-06-26 11:40] VITALS: BP 146/74; PULSE 86; RESP 16; TEMP 36.8; O2SAT 95
== END 2025-06-26 23:59 | disposition home or self-care (01) ==
PROVIDERS: Nurse Practitioner; PCP Family Medicine; Visit Provider Internal Medicine
DX: Z51.12 Encounter for antineoplastic immunotherapy (principal); C05.1 Malignant neoplasm of soft palate; F17.200 Nicotine dependence, unspecified, uncomplicated; D50.9 Iron deficiency anemia, unspecified; E46 Unspecified protein-calorie malnutrition; Z79.899 Other long term (current) drug therapy
CPT/HCPCS: 80053; 83615; 84443; 85025; 96413; 99213; A4222; J7050; J9271

== ENCOUNTER 2025-07-17 09:11 | Oncology outpatient (recurring) (ONCR) | payer MEDICARE, OTHER, SELFPAY ==
[2025-07-17 09:52] LABS: Hematocrit 36.8 % (37-53); Hemoglobin 12.00 g/dL (11.27-16.99); Mean Corpuscular HGB Conc 32.6 g/dL (30-55); Mean Corpuscular Hemoglobin 29.9 pg (27-33); Mean Corpuscular Volume 91.5 fl (82-101); Nucleated Red Blood Cells % 0 %; Platelet Count 365 10^3/cmm (157-399); Red Blood Count 4.02 10^6/uL (3.85-5.65); White Blood Count 8.68 10^3/uL (3.29-11.43)
[2025-07-17 10:18] LABS: Alanine Aminotransferase 10 U/L (0-41); Albumin Level 4.1 g/dL (3.5-5.2); Alkaline Phosphatase 80 U/L (40-130); Anion Gap 15.1 (5-19); Aspartate Amino Transferase 15 U/L (0-40); Blood Urea Nitrogen 54 mg/dL (8-23); Calcium 11.0 mg/dL (8.5-10.5); Carbon Dioxide 31 mmol/L (22-29); Chloride 96 mmol/L (98-107); Creatinine Clr Calc Pharmacy 45.6992; Globulin 3.7 g/dL (1.3-4.6); Glucose 105 mg/dL (65-115); Osmolality Calculated 301 mOsm/kg (285-295); Potassium 4.1 mmol/L (3.5-5.1); Sodium 138 mmol/L (136-145); Thyroid Stimulating Hormone 0.25 uIU/mL (0.27-4.20); Total Protein 7.8 g/dL (6.6-8.7)
[2025-07-17] MEDS: pembrolizumab 200 MG in sodium chloride 0.9% 250 ML 516 MG IV (11:35)
[2025-07-17 12:25] VITALS: BP 138/54; PULSE 48; RESP 18; TEMP 37.1; O2SAT 94
== END 2025-07-17 23:59 | disposition home or self-care (01) ==
PROVIDERS: PCP Family Medicine; Visit Provider Internal Medicine
DX: Z51.12 Encounter for antineoplastic immunotherapy (principal); C05.1 Malignant neoplasm of soft palate; D50.9 Iron deficiency anemia, unspecified; Z79.899 Other long term (current) drug therapy
CPT/HCPCS: 80053; 83615; 84443; 85025; 96413; A4222; J7050; J9271

== ENCOUNTER 2025-08-07 10:03 | Oncology outpatient (recurring) (ONCR) | payer MEDICARE, OTHER, SELFPAY ==
[2025-08-07 10:35] LABS: Hematocrit 37.2 % (37-53); Hemoglobin 12.40 g/dL (11.27-16.99); Mean Corpuscular HGB Conc 33.3 g/dL (30-55); Mean Corpuscular Hemoglobin 29.9 pg (27-33); Mean Corpuscular Volume 89.6 fl (82-101); Nucleated Red Blood Cells % 0 %; Platelet Count 296 10^3/cmm (157-399); Red Blood Count 4.15 10^6/uL (3.85-5.65); White Blood Count 9.32 10^3/uL (3.29-11.43)
[2025-08-07 11:05] LABS: Alanine Aminotransferase 11 U/L (0-41); Albumin Level 4.3 g/dL (3.5-5.2); Alkaline Phosphatase 78 U/L (40-130); Anion Gap 15.8 (5-19); Aspartate Amino Transferase 16 U/L (0-40); Blood Urea Nitrogen 61 mg/dL (8-23); Calcium 11.7 mg/dL (8.5-10.5); Carbon Dioxide 30 mmol/L (22-29); Chloride 98 mmol/L (98-107); Ferritin 38 ng/mL (30-400); Globulin 3.6 g/dL (1.3-4.6); Glucose 114 mg/dL (65-115); Iron 47 ug/dL (59-158); Osmolality Calculated 306 mOsm/kg (285-295); Potassium 4.8 mmol/L (3.5-5.1); Sodium 139 mmol/L (136-145); Thyroid Stimulating Hormone 0.81 uIU/mL (0.27-4.20); Total Iron Binding Capacity 334 mcg/dl; Total Protein 7.9 g/dL (6.6-8.7); Unsaturated Iron Binding 287 ug/dL (112-347)
[2025-08-07] MEDS: pembrolizumab 200 MG in sodium chloride 0.9% 250 ML 516 MG IV (11:48)
[2025-08-07 16:56] LABS: Free T4 Free Thyroxine 1.80 ng/dL (0.82-1.77)
== END 2025-08-07 23:59 | disposition home or self-care (01) ==
PROVIDERS: Nurse Practitioner; PCP Family Medicine; Visit Provider Internal Medicine
DX: Z51.12 Encounter for antineoplastic immunotherapy (principal); C05.1 Malignant neoplasm of soft palate; D50.9 Iron deficiency anemia, unspecified; E03.9 Hypothyroidism, unspecified; F17.200 Nicotine dependence, unspecified, uncomplicated; R03.0 Elevated blood-pressure reading, without diagnosis of hypertension; E83.52 Hypercalcemia; R19.7 Diarrhea, unspecified; K59.00 Constipation, unspecified; Z92.3 Personal history of irradiation; Z92.21 Personal history of antineoplastic chemotherapy; Z79.899 Other long term (current) drug therapy
CPT/HCPCS: 36415; 80053; 82728; 83540; 83550; 84439; 84443; 85025; 96413; 99214; A4222; J7050; J9271

== ENCOUNTER 2025-08-28 10:19 | Oncology outpatient (recurring) (ONCR) | payer MEDICARE, OTHER, SELFPAY ==
[2025-08-28 11:10] LABS: Hematocrit 40.6 % (37-53); Hemoglobin 13.00 g/dL (11.27-16.99); Mean Corpuscular HGB Conc 32.0 g/dL (30-55); Mean Corpuscular Hemoglobin 29.0 pg (27-33); Mean Corpuscular Volume 90.4 fl (82-101); Nucleated Red Blood Cells % 0 %; Platelet Count 297 10^3/cmm (157-399); Red Blood Count 4.49 10^6/uL (3.85-5.65); White Blood Count 10.07 10^3/uL (3.29-11.43)
[2025-08-28 11:38] LABS: Alanine Aminotransferase 12 U/L (0-41); Albumin Level 4.3 g/dL (3.5-5.2); Alkaline Phosphatase 90 U/L (40-130); Blood Urea Nitrogen 45 mg/dL (8-23); Calcium 10.4 mg/dL (8.5-10.5); Carbon Dioxide 26 mmol/L (22-29); Chloride 97 mmol/L (98-107); Creatinine Clr Calc Pharmacy 50.5189; Globulin 3.8 g/dL (1.3-4.6); Glucose 105 mg/dL (65-115); Osmolality Calculated 294 mOsm/kg (285-295); Sodium 136 mmol/L (136-145); Thyroid Stimulating Hormone 0.35 uIU/mL (0.27-4.20); Total Protein 8.1 g/dL (6.6-8.7)
[2025-08-28 11:41] LABS: Anion Gap 17.4 (5-19); Aspartate Amino Transferase 21 U/L (0-40); Potassium 4.4 mmol/L (3.5-5.1)
[2025-08-28] MEDS: pembrolizumab 200 MG in sodium chloride 0.9% 250 ML 516 MG IV (12:14)
--- NOTE | 2025-08-28 13:55 | PC.NURSE ---
Pt told me I could not do vitals on him after his infusion. He stated he had been here long anyways and that he was fine.
== END 2025-08-28 23:59 | disposition home or self-care (01) ==
PROVIDERS: Internal Medicine; PCP Family Medicine; Visit Provider Internal Medicine
DX: Z51.12 Encounter for antineoplastic immunotherapy (principal); C05.1 Malignant neoplasm of soft palate; C76.0 Malignant neoplasm of head, face and neck; E83.52 Hypercalcemia; F17.200 Nicotine dependence, unspecified, uncomplicated; D50.9 Iron deficiency anemia, unspecified; R03.0 Elevated blood-pressure reading, without diagnosis of hypertension; Z92.21 Personal history of antineoplastic chemotherapy; Z92.3 Personal history of irradiation; Z79.899 Other long term (current) drug therapy
CPT/HCPCS: 80053; 82306; 84443; 85025; 96413; 99214; A4222; J7050; J9271

== ENCOUNTER 2025-09-18 09:18 | Oncology outpatient (recurring) (ONCR) | payer MEDICARE, OTHER, SELFPAY ==
[2025-09-18 09:48] LABS: Hematocrit 36.3 % (37-53); Hemoglobin 11.80 g/dL (11.27-16.99); Mean Corpuscular HGB Conc 32.5 g/dL (30-55); Mean Corpuscular Hemoglobin 28.4 pg (27-33); Mean Corpuscular Volume 87.5 fl (82-101); Nucleated Red Blood Cells % 0 %; Platelet Count 374 10^3/cmm (157-399); Red Blood Count 4.15 10^6/uL (3.85-5.65); White Blood Count 12.45 10^3/uL (3.29-11.43)
[2025-09-18 10:16] LABS: Alanine Aminotransferase 8 U/L (0-41); Albumin Level 3.9 g/dL (3.5-5.2); Alkaline Phosphatase 89 U/L (40-130); Anion Gap 14.1 (5-19); Aspartate Amino Transferase 13 U/L (0-40); Blood Urea Nitrogen 46 mg/dL (8-23); Calcium 9.8 mg/dL (8.5-10.5); Carbon Dioxide 28 mmol/L (22-29); Chloride 97 mmol/L (98-107); Globulin 3.7 g/dL (1.3-4.6); Glucose 94 mg/dL (65-115); Osmolality Calculated 292 mOsm/kg (285-295); Potassium 4.1 mmol/L (3.5-5.1); Sodium 135 mmol/L (136-145); Thyroid Stimulating Hormone 3.42 uIU/mL (0.27-4.20); Total Protein 7.6 g/dL (6.6-8.7)
[2025-09-18] MEDS: pembrolizumab 200 MG in sodium chloride 0.9% 250 ML 516 MG IV (11:14)
[2025-09-18 11:55] VITALS: BP 124/64; PULSE 78; RESP 17; TEMP 35.9; O2SAT 97
[2025-09-18 12:01] LABS: Ferritin 64 ng/mL (30-400); Iron 28 ug/dL (59-158); Total Iron Binding Capacity 301 mcg/dl; Unsaturated Iron Binding 273 ug/dL (112-347)
[2025-09-18 12:17] LABS: Vitamin B12 760 pg/mL (232-1245)
== END 2025-09-18 23:59 | disposition home or self-care (01) ==
PROVIDERS: Nurse Practitioner; PCP Family Medicine; Visit Provider Internal Medicine
DX: Z51.12 Encounter for antineoplastic immunotherapy (principal); C05.1 Malignant neoplasm of soft palate; D50.9 Iron deficiency anemia, unspecified; F17.210 Nicotine dependence, cigarettes, uncomplicated; Z79.899 Other long term (current) drug therapy; Z92.3 Personal history of irradiation
CPT/HCPCS: 80053; 82607; 82728; 82746; 83010; 83540; 83550; 83615; 84443; 85025; 85045; 96413; 99213; A4222; J7050; J9271

== ENCOUNTER 2025-10-09 09:43 | Oncology outpatient (recurring) (ONCR) | payer MEDICARE, OTHER, SELFPAY ==
[2025-09-25 09:25] LABS: Hematocrit 36.1 % (37-53); Hemoglobin 12.10 g/dL (11.27-16.99); Mean Corpuscular HGB Conc 33.5 g/dL (30-55); Mean Corpuscular Hemoglobin 29.0 pg (27-33); Mean Corpuscular Volume 86.6 fl (82-101); Nucleated Red Blood Cells % 0 %; Platelet Count 335 10^3/cmm (157-399); Red Blood Count 4.17 10^6/uL (3.85-5.65); White Blood Count 12.03 10^3/uL (3.29-11.43)
[2025-09-25 09:53] LABS: Alanine Aminotransferase 9 U/L (0-41); Albumin Level 4.2 g/dL (3.5-5.2); Alkaline Phosphatase 91 U/L (40-130); Anion Gap 14.3 (5-19); Aspartate Amino Transferase 16 U/L (0-40); Blood Urea Nitrogen 43 mg/dL (8-23); Calcium 9.9 mg/dL (8.5-10.5); Carbon Dioxide 29 mmol/L (22-29); Chloride 98 mmol/L (98-107); Globulin 3.8 g/dL (1.3-4.6); Glucose 103 mg/dL (65-115); Osmolality Calculated 295 mOsm/kg (285-295); Potassium 4.3 mmol/L (3.5-5.1); Sodium 137 mmol/L (136-145); Total Protein 8.0 g/dL (6.6-8.7)
[2025-10-09 10:26] LABS: Hematocrit 35.6 % (37-53); Hemoglobin 11.50 g/dL (11.27-16.99); Mean Corpuscular HGB Conc 32.3 g/dL (30-55); Mean Corpuscular Hemoglobin 28.8 pg (27-33); Mean Corpuscular Volume 89.2 fl (82-101); Nucleated Red Blood Cells % 0 %; Platelet Count 319 10^3/cmm (157-399); Red Blood Count 3.99 10^6/uL (3.85-5.65); White Blood Count 9.00 10^3/uL (3.29-11.43)
[2025-10-09 11:00] LABS: Alanine Aminotransferase 10 U/L (0-41); Albumin Level 3.8 g/dL (3.5-5.2); Alkaline Phosphatase 77 U/L (40-130); Anion Gap 13.5 (5-19); Aspartate Amino Transferase 15 U/L (0-40); Blood Urea Nitrogen 48 mg/dL (8-23); Calcium 9.6 mg/dL (8.5-10.5); Carbon Dioxide 29 mmol/L (22-29); Chloride 98 mmol/L (98-107); Globulin 3.9 g/dL (1.3-4.6); Glucose 102 mg/dL (65-115); Osmolality Calculated 295 mOsm/kg (285-295); Potassium 4.5 mmol/L (3.5-5.1); Sodium 136 mmol/L (136-145); Thyroid Stimulating Hormone 1.81 uIU/mL (0.27-4.20); Total Protein 7.7 g/dL (6.6-8.7)
[2025-10-09 11:16] VITALS: BP 123/51; PULSE 46; RESP 17; TEMP 37.1; O2SAT 97
[2025-10-09] MEDS: pembrolizumab 200 MG in sodium chloride 0.9% 250 ML 516 MG IV (11:38)
[2025-10-09 12:26] VITALS: BP 137/75; PULSE 43; RESP 18; TEMP 37; O2SAT 94
== END 2025-10-09 23:59 | disposition home or self-care (01) ==
PROVIDERS: Nurse Practitioner; PCP Family Medicine; Visit Provider Internal Medicine
DX: Z53.9 Procedure and treatment not carried out, unspecified reason; Z51.12 Encounter for antineoplastic immunotherapy; C05.1 Malignant neoplasm of soft palate; D50.9 Iron deficiency anemia, unspecified; R03.0 Elevated blood-pressure reading, without diagnosis of hypertension; F17.210 Nicotine dependence, cigarettes, uncomplicated; Z79.899 Other long term (current) drug therapy
CPT/HCPCS: 36415; 80053; 84443; 85025; 96413; 99214; J7050; J9271

== ENCOUNTER 2025-10-16 10:04 | Oncology outpatient (recurring) (ONCR) | payer MEDICARE, OTHER, SELFPAY ==
--- NOTE | 2025-10-16 10:00 | CTR_ITS ---
PROCEDURE INFORMATION: Exam: CT Chest With Contrast; Diagnostic Exam date and time: 10/16/2025 11:08 AM Age: 80 years old Clinical indication: Condition or disease; Other: Malignant neoplasm of soft palate; Prior surgery; Surgery date: 6+ months; Surgery type: Hernia TECHNIQUE: Imaging protocol: Diagnostic computed tomography of the chest with contrast. Radiation optimization: All CT scans at this facility use at least one of these dose optimization techniques: automated exposure control; mA and/or kV adjustment per patient size (includes targeted exams where dose is matched to clinical indication); or iterative reconstruction. Contrast material: OMNI 350; Contrast volume: 100 ml; Contrast route: INTRAVENOUS (IV); COMPARISON: CT chest abdpel w/*[id number] 04/17/2025 1:20 PM RADIATION DOSE METRICS: Total DLP (mGy-cm): 514.94 FINDINGS: Thyroid: Thyroid gland appears unremarkable. Lungs: [id number] centrilobular emphysematous changes are present bilaterally. Masslike confluence airspace consolidation within the posterior aspect of the right middle lobe has slightly increased in size. More focal central area of consolidation measures up to 1.8 x 1.7 x 2.5 cm. This abuts the pleural surface. Rounded atelectasis is also considered. Associated atelectatic change extends laterally along the minor fissure. There are a few additional nodular areas of pleural-based airspace opacity within the medial segment of the right middle lobe. Small area of atelectatic change and septal thickening extends into the inferior aspect of the right upper lobe. Areas of septal thickening and slight architectural distortion is present within the anterior aspect of the left upper lobe. Additional areas of septal thickening and slight nodularity is present within the inferior aspect of the right middle lobe. New 7 mm nodular airspace opacity is present within the anterior inferior aspect of the right middle lobe (image 47 of series 5). 6 mm nodular airspace opacity within the right lower lobe (image 46 of series 5) more has the appearance of postinflammatory change. Fibrosis and scarring is present at the right and left lung apex. Findings appear similar. Pleural spaces: No significant pleural effusion. No pneumothorax. Heart: Heart size is upper limits for normal. No pericardial effusion. Heavy dense coronary artery calcifications are present. Mild fusiform dilatation of the ascending thoracic aorta measuring up to 3.4 x 3.3 cm in greatest diameter. No evidence for dissection. Heavy atherosclerotic plaque of the aortic arch and extending into the origins of the great vessels. Heavy calcified and noncalcified plaque along the descending thoracic aorta. Mild fusiform dilatation of the distal descending thoracic aorta measuring up to 3.1 cm in greatest diameter. Lymph nodes: No suspicious axillary lymphadenopathy or mass. No supraclavicular lymphadenopathy. Enlarged precarinal lymph node measuring 1.4 cm in short axis has increased in size. Prominence of the intrapulmonary lymphoid tissue at the right and left hilum appears similar. Enlarged subcarinal lymph node measuring 2.6 cm in short axis has increased in size. Mildly prominent lymph nodes at the aortopulmonary window and prevascular space appears similar to slightly increased in size. Findings concerning for sara metastatic disease. Calcified subcarinal and hilar lymph nodes appear similar. Vasculature: See Heart finding. Bones/joints: Multiple old healed rib fracture deformities are present on the right. No acute fracture. No new suspicious lytic or sclerotic bone lesion. Multilevel degenerative changes are present throughout the midthoracic spine. Soft tissues: Unremarkable. PROCEDURE INFORMATION: Exam: CT Abdomen And Pelvis With Contrast Exam date and time: 10/16/2025 11:08 AM Age: 80 years old Clinical indication: Condition or disease; Other: Malignant neoplasm of soft palate; Prior surgery; Surgery date: 6+ months; Surgery type: Hernia TECHNIQUE: Imaging protocol: Computed tomography of the abdomen and pelvis with contrast. Radiation optimization: All CT scans at this facility use at least one of these dose optimization techniques: automated exposure control; mA and/or kV adjustment per patient size (includes targeted exams where dose is matched to clinical indication); or iterative reconstruction. Contrast material: OMNI 350; Contrast volume: 100 ml; Contrast route: INTRAVENOUS (IV); COMPARISON: CT chest abdpel w/*[id number] 04/17/2025 1:20 PM RADIATION DOSE METRICS: Total DLP (mGy-cm): 514.94 FINDINGS: Diaphragm: No large hiatal hernia. Liver: The liver is unremarkable. No suspicious mass or lesion within the liver. Gallbladder and biliary ducts: Small foci of increased density are present within the fundus of the gallbladder. Small gallstone or polyp is suspected. No gallbladder wall thickening or surrounding free fluid. No intrahepatic ductal dilatation. Common bile duct appears unremarkable. Pancreas: The pancreas is unremarkable. Spleen: The spleen is unremarkable. Adrenal glands: The adrenal glands are unremarkable. Kidneys and ureters: Simple right renal cyst. This measures up to 1.6 cm. This is unchanged. No solid suspicious renal mass on the right. No large renal calculi. Slight delay in the left renal nephrogram as compared to the right. 7 mm cortical hypodensity along the anterior aspect of the lower pole of the left kidney. Small cyst is suspected. This is too small to characterize further. No solid suspicious renal mass. No perinephric fluid collection. The ureters appear unremarkable. 2.8 cm simple appearing exophytic cyst extending along the medial margin of the lower pole of the left kidney. Stomach and bowel: The stomach appears unremarkable. Small bowel loops are normal in caliber no evidence of a small bowel obstruction. Large stool burden compatible with some degree of constipation. No evidence for acute colitis. Appendix: The appendix is not discretely visualized. No secondary signs of acute appendicitis. Intraperitoneal space: Trace amount of free fluid is present adjacent to the cecum. Overall no significant free fluid or free intraperitoneal air. There is haziness and stranding throughout the mesenteric fat. Vasculature: Infrarenal abdominal aortic aneurysm measuring up to 5.0 x 4.8 cm in greatest diameter. This previously measured up to 4.9 x 4.7 cm in greatest diameter. Heavy calcified and noncalcified plaque along the length of the infrarenal abdominal aorta. No evidence for dissection. Dense calcified plaque at the origin of the celiac artery results in high-grade stenosis. Dense calcified plaque of the origin of the superior mesenteric artery results in moderate to high-grade stenosis. Celiac and superior mesenteric arteries remain patent. Dense calcified plaque of the left renal ostium. Given slight delay in the left renal nephrogram as compared to the right, this is compatible with flow-limiting stenosis. Findings appear similar. Heavy atherosclerotic plaque along the right and left common iliac arteries. High-grade stenosis of the proximal right common iliac artery. Iliac arteries remain patent. Heavy atherosclerotic plaque along the internal and external iliac arteries with multifocal stenosis. Findings appear similar. Lymph nodes: There are no enlarged or suspicious intra-abdominal, pelvic or retroperitoneal lymph nodes. Urinary bladder: Mild circumferential bladder wall thickening more compatible with bladder wall trabeculation. No focal mass or bladder calculus. Reproductive: Prostate is markedly enlarged and impresses upon the base of the bladder. Fullness of the seminal vesicles. Bones/joints: Bones are demineralized. No new suspicious lytic or sclerotic bone lesion. No acute fracture. No acute osseous abnormality. Advanced osteoarthritic changes are present at the right and left hip joint. Advanced disc space narrowing and degenerative endplate changes present at the L5-S1 level. Partial fusion of the left SI joint. Soft tissues: Mild subcutaneous edema. No focal fluid collection. Small periumbilical hernia containing fat. CT/CT chest abdpel w/*[id number] IMPRESSION: 1. Enlarged precarinal lymph node measuring 1.4 cm in short axis has increased in size. Prominence of the intrapulmonary lymphoid tissue at the right and left hilum appears similar. Enlarged subcarinal lymph node measuring 2.6 cm in short axis has increased in size. Mildly prominent lymph nodes at the aortopulmonary window and prevascular space appear similar to slightly increased in size. Findings concerning for sara metastatic disease. 2. Interval increase in size of previously seen pleural-based nodular airspace opacity within the posterior aspect of the right middle lobe. There is associated atelectatic change and septal thickening. Additional areas of postinflammatory changes slight nodularity is present within the anterior inferior aspect of the right middle lobe. Given increase in size, neoplastic disease should be considered and is not excluded on this exam. IMPRESSION: 1. 5.0 x 4.8 cm infrarenal abdominal aortic aneurysm. This previously measured 4.9 x 4.7 cm. No evidence for dissection. 2. Heavy atherosclerotic plaque along the length of the abdominal aorta and involving the iliac arteries. Multifocal stenosis throughout the iliac arteries. Flow-limiting stenosis within the left renal artery. Findings appear similar. 3. No newly enlarged or suspicious intra-abdominal, pelvic or retroperitoneal lymph nodes. 4. Circumferential wall thickening involving the bladder more compatible with bladder wall trabeculation. Prostate is enlarged and impresses upon the base of the bladder. 5. Small foci of increased density are present within the fundus of the gallbladder. Small gallstone or polyp is suspected. No gallbladder wall thickening or surrounding free fluid. COMMENTS: Consistent with the [employer]'s Incidental Findings Committee white paper (J Am Zan Radiol 2018): Any incidental renal lesion less than 1 cm or classified as too small to characterize, or any incidental cystic renal lesion characterized as simple-appearing, is likely benign. No follow-up imaging is recommended for these lesions per consensus recommendations based on imaging criteria.
[2025-10-16] MEDS: iohexol 350 mg/mL 500 mL Btl (per mL) PO (10:51)
[2025-10-16] MEDS: iohexol 350 mg/mL 500 mL Btl (per mL) IV (11:19)
== END 2025-10-20 23:59 | disposition home or self-care (01) ==
LOC: ONCMED 10:04
PROVIDERS: PCP Family Medicine; Visit Provider Internal Medicine
DX: C05.1 Malignant neoplasm of soft palate (principal); D50.9 Iron deficiency anemia, unspecified; R59.0 Localized enlarged lymph nodes; R91.8 Other nonspecific abnormal finding of lung field; J98.4 Other disorders of lung; I70.0 Atherosclerosis of aorta; I70.8 Atherosclerosis of other arteries; I70.1 Atherosclerosis of renal artery; N32.89 Other specified disorders of bladder; N40.0 Benign prostatic hyperplasia without lower urinary tract symptoms; R93.3 Abnormal findings on diagnostic imaging of other parts of digestive tract; J43.2 Centrilobular emphysema; J98.11 Atelectasis; J84.10 Pulmonary fibrosis, unspecified; I25.10 Atherosclerotic heart disease of native coronary artery without angina pectoris; Z87.81 Personal history of (healed) traumatic fracture; M47.894 Other spondylosis, thoracic region; N28.1 Cyst of kidney, acquired; N28.89 Other specified disorders of kidney and ureter; R93.89 Abnormal findings on diagnostic imaging of other specified body structures; I71.43 Infrarenal abdominal aortic aneurysm, without rupture; M85.80 Other specified disorders of bone density and structure, unspecified site; M16.0 Bilateral primary osteoarthritis of hip; M51.379 Other intervertebral disc degeneration, lumbosacral region without mention of lumbar back pain or lower extremity pain; M47.897 Other spondylosis, lumbosacral region; M43.28 Fusion of spine, sacral and sacrococcygeal region; R60.0 Localized edema; K42.9 Umbilical hernia without obstruction or gangrene
CPT/HCPCS: 71260; 74177

== ENCOUNTER 2025-10-30 09:40 | Oncology outpatient (recurring) (ONCR) | payer MEDICARE, OTHER, SELFPAY ==
[2025-10-30 10:26] LABS: Hematocrit 38.4 % (37-53); Hemoglobin 12.70 g/dL (11.27-16.99); Mean Corpuscular HGB Conc 33.1 g/dL (30-55); Mean Corpuscular Hemoglobin 28.5 pg (27-33); Mean Corpuscular Volume 86.3 fl (82-101); Nucleated Red Blood Cells % 0 %; Platelet Count 347 10^3/cmm (157-399); Red Blood Count 4.45 10^6/uL (3.85-5.65); White Blood Count 10.60 10^3/uL (3.29-11.43)
[2025-10-30 11:08] LABS: Alanine Aminotransferase 10 U/L (0-41); Albumin Level 4.2 g/dL (3.5-5.2); Alkaline Phosphatase 88 U/L (40-130); Blood Urea Nitrogen 43 mg/dL (8-23); Calcium 10.1 mg/dL (8.5-10.5); Carbon Dioxide 29 mmol/L (22-29); Chloride 97 mmol/L (98-107); Globulin 4.0 g/dL (1.3-4.6); Glucose 107 mg/dL (65-115); Osmolality Calculated 293 mOsm/kg (285-295); Sodium 136 mmol/L (136-145); Thyroid Stimulating Hormone 1.34 uIU/mL (0.27-4.20); Total Protein 8.2 g/dL (6.6-8.7)
[2025-10-30 11:09] LABS: Anion Gap 14.7 (5-19); Aspartate Amino Transferase 22 U/L (0-40); Potassium 4.7 mmol/L (3.5-5.1)
[2025-10-30] MEDS: pembrolizumab 200 MG in sodium chloride 0.9% 250 ML 516 MG IV (11:36)
[2025-10-30 12:25] VITALS: BP 165/73; PULSE 71; RESP 18; TEMP 37; O2SAT 97
== END 2025-10-30 23:59 | disposition home or self-care (01) ==
PROVIDERS: Nurse Practitioner; PCP Family Medicine; Visit Provider Internal Medicine
DX: Z51.12 Encounter for antineoplastic immunotherapy (principal); C05.1 Malignant neoplasm of soft palate; D50.9 Iron deficiency anemia, unspecified; F17.200 Nicotine dependence, unspecified, uncomplicated; Z92.21 Personal history of antineoplastic chemotherapy; Z92.3 Personal history of irradiation; Z79.899 Other long term (current) drug therapy; Z71.6 Tobacco abuse counseling
CPT/HCPCS: 80053; 84443; 85025; 96413; 99213; A4222; J7050; J9271

== ENCOUNTER 2025-11-20 09:41 | Oncology outpatient (recurring) (ONCR) | payer MEDICARE, OTHER, SELFPAY ==
[2025-11-20 10:19] LABS: Hematocrit 40.7 % (37-53); Hemoglobin 12.90 g/dL (11.27-16.99); Mean Corpuscular HGB Conc 31.7 g/dL (30-55); Mean Corpuscular Hemoglobin 28.0 pg (27-33); Mean Corpuscular Volume 88.3 fl (82-101); Nucleated Red Blood Cells % 0 %; Platelet Count 322 10^3/cmm (157-399); Red Blood Count 4.61 10^6/uL (3.85-5.65); White Blood Count 10.56 10^3/uL (3.29-11.43)
[2025-11-20 10:54] LABS: Alanine Aminotransferase 29 U/L (0-41); Albumin Level 4.2 g/dL (3.5-5.2); Alkaline Phosphatase 163 U/L (40-130); Anion Gap 16.2 (5-19); Aspartate Amino Transferase 21 U/L (0-40); Blood Urea Nitrogen 44 mg/dL (8-23); Calcium 9.9 mg/dL (8.5-10.5); Carbon Dioxide 28 mmol/L (22-29); Chloride 100 mmol/L (98-107); Ferritin 52 ng/mL (30-400); Globulin 3.6 g/dL (1.3-4.6); Glucose 98 mg/dL (65-115); Iron 121 ug/dL (59-158); Osmolality Calculated 301 mOsm/kg (285-295); Potassium 4.2 mmol/L (3.5-5.1); Sodium 140 mmol/L (136-145); Thyroid Stimulating Hormone 0.87 uIU/mL (0.27-4.20); Total Iron Binding Capacity 310 mcg/dl; Total Protein 7.8 g/dL (6.6-8.7); Unsaturated Iron Binding 189 ug/dL (112-347)
[2025-11-20] MEDS: pembrolizumab 200 MG in sodium chloride 0.9% 250 ML 516 MG IV (11:34)
[2025-11-20 12:22] VITALS: BP 129/89; PULSE 90; RESP 20; TEMP 36.5; O2SAT 99
== END 2025-11-20 23:59 | disposition home or self-care (01) ==
PROVIDERS: Nurse Practitioner; PCP Family Medicine; Visit Provider Internal Medicine
DX: Z51.12 Encounter for antineoplastic immunotherapy (principal); C05.1 Malignant neoplasm of soft palate; D50.9 Iron deficiency anemia, unspecified; F17.200 Nicotine dependence, unspecified, uncomplicated; Z79.899 Other long term (current) drug therapy
CPT/HCPCS: 80053; 82728; 82746; 83010; 83540; 83550; 83615; 84443; 85025; 96413; 99214; A4222; J7050; J9271